=== PATIENT | male | born 1960 | race Caucasian/White ===

== ENCOUNTER 2018-02-26 07:40 | Outpatient (CLI) | payer BC ==
[2018-02-26] VITALS (17 sets, daily range): BP systolic 137–169; BP diastolic 84–113
== END 2018-02-26 23:59 | disposition home or self-care (01) ==
LOC: CARD DIAG 07:40
PROVIDERS: ATTEND Internal Medicine Interventional Cardiology
DX: R55 Syncope and collapse (principal)
CPT/HCPCS: 93660

== ENCOUNTER 2018-04-02 10:38 | Inpatient (IN) | payer BC ==
[~2018-04-02] VITALS: Ht 172.7 cm; Wt 86.0 kg
[2018-04-02] MEDS ORDERED: levetiracetam inj 1,000 MG in normal saline 100ml IV soln 90 ML IV ONE (11:20)
[2018-04-02] MEDS ORDERED: normal saline 1000ML IV soln IVB ONE (11:20)
[2018-04-02] MEDS ORDERED: ondansetron/PF 4mg/2ml inj IV ONE (11:20)
[2018-04-02] MEDS ORDERED: LORazepam 2 mg/ml vial IV ONE (11:25)
[2018-04-02] MEDS ORDERED: CefTRIAXone 2gm/D5W 50ml 50 ML IV ONE (11:40)
[2018-04-02] MEDS ORDERED: acyclovir 1 GM inj IV SCH (11:40)
[2018-04-02 11:42] LABS: BASOPHILS # (AUTO) 0.1 X10'3 (0-0.2); BASOPHILS % (AUTO) 0.4 % (0-1); EOSINOPHILS # (AUTO) 0.3 X10'3 (0-0.9); EOSINOPHILS % (AUTO) 1.8 % (0-6); HEMATOCRIT 53.5 % (42.0-52.0); HEMOGLOBIN 17.7 g/dl (14.0-17.9); LYMPHOCYTES # (AUTO) 6.6 X10'3 (1.1-4.8); LYMPHOCYTES % (AUTO) 44.8 % (21-51); MEAN CORPUSCULAR HEMOGLOBIN 29.9 PG (27.0-31.0); MEAN CORPUSCULAR VOLUME 90.6 FL (78-98); MONOCYTES % (AUTO) 7.1 % (2-12); NEUTROPHILS # (AUTO) 6.7 X10'3 (1.8-7.7); NEUTROPHILS % (AUTO) 45.9 % (42-75); PLATELET COUNT 222 X10'3 (140-440); RED BLOOD COUNT 5.91 X10'6 (4.70-6.10); RED CELL DISTRIBUTION WIDTH 13.3 % (11.5-14.5); WHITE BLOOD COUNT 14.7 X10'3 (4.5-11.0)
[2018-04-02 11:53] LABS: INR 1.1 INR; PARTIAL THROMBOPLASTIN TIME 25 SECONDS (22-32); PROTHROMBIN TIME 11.1 SECONDS (9.0-12.0)
[2018-04-02 12:00] LABS: ALANINE AMINOTRANSFERASE 35 U/L (12-78); ALBUMIN 4.4 G/DL (3.4-5.0); ALBUMIN/GLOBULIN RATIO 1.3 (1.1-1.5); ALKALINE PHOSPHATASE 78 IU/L (46-116); ANION GAP 30 (8-16); ASPARTATE AMINO TRANSFERASE 23 U/L (10-37); BILIRUBIN,TOTAL 0.7 MG/DL (0.1-1.0); BLOOD UREA NITROGEN 23 MG/DL (7-18); BUN/CREATININE RATIO 14.6 (5.4-32.0); CALCIUM 9.7 MG/DL (8.5-10.1); CHLORIDE 103 MMOL/L (99-107); CREATININE 1.58 MG/DL (0.60-1.10); ETHANOL < 0.010 GM/DL (0.0-0.010); GLUCOSE 183 MG/DL (70-104); POTASSIUM 3.3 MMOL/L (3.5-5.1); SODIUM 145 MMOL/L (135-145); TOTAL PROTEIN 7.7 G/DL (6.4-8.2); TROPONIN I < 0.04 NG/ML (0.0-0.05); eGFR 45 ML/MIN
[2018-04-02 12:05] LABS: TOTAL CARBON DIOXIDE 12.4 MMOL/L (24-32)
[2018-04-02] MEDS ORDERED: ACYCLOVIR IV SCH ×2 (12:45→16:00)
[2018-04-02] MEDS ORDERED: NORMAL SALINE IV SCH ×2 (12:45→16:00)
[2018-04-02] MEDS ORDERED: LIDOcaine 1% 30ml preserv. free vial IJ ONE (13:45)
[2018-04-02] MEDS: ACYCLOVIR IV SCH (14:04)
[2018-04-02] MEDS: NORMAL SALINE IV SCH (14:04)
[2018-04-02 14:49] LABS: GLUCOSE,CSF 79 MG/DL (40-75); TOTAL PROTEIN,CSF 59 MG/DL (15-45)
[2018-04-02 15:32] LABS: APPEARANCE,CSF CLEAR; CSF RBC 14 /CU MM (0); CSF SUPERNATANT COLOR COLORLESS; CSF VOLUME 7 ML; CSF WBC CT 2 /CU MM (0-5); TUBE# COUNTED 1
[2018-04-02 15:33] LABS: APPEARANCE,CSF CLEAR; CSF SUPERNATANT COLOR COLORLESS; CSF VOLUME 7 ML; TUBE# COUNTED 4
[2018-04-02 15:34] LABS: CSF RBC 1 /CU MM (0); CSF WBC CT 2 /CU MM (0-5)
[2018-04-02] MEDS ORDERED: magnesium Cl slow-release 64mg tablet PO PRN (17:35)
[2018-04-02] MEDS ORDERED: potassium Cl 40MEQ/NS 500ml 500 ML IV PRN ×2 (17:35)
[2018-04-02] MEDS ORDERED: magnesium 4gm in 100ml NS 100 ML IV PRN (17:35)
[2018-04-02] MEDS ORDERED: ondansetron/PF 4mg/2ml inj IV PRN (17:35)
[2018-04-02] MEDS ORDERED: potassium Cl 20 mEq SR tablet PO PRN ×2 (17:35)
[2018-04-02] MEDS ORDERED: LOSA25TA96 PO (18:34)
[2018-04-02] MEDS ORDERED: ATOR40TA PO (18:34)
[2018-04-02] MEDS ORDERED: FLO0.4C PO (18:34)
[2018-04-02] MEDS: acetaminophen 325mg tablet PO PRN (19:34)
[2018-04-02] MEDS: levetiracetam 250mg tablet PO ONE ×2 (19:35→20:14)
[2018-04-02] MEDS: normal saline 1000ml 1,000 ML IV SCH (19:36)
[2018-04-02 20:02] LABS: CLARITY,URINE CLEAR (Clear); COLOR,URINE YELLOW (Yellow); GLUCOSE, URINE NEGATIVE (Neg); KETONES,URINE NEGATIVE (Neg); LEUKOCYTE ESTERASE ,URINE NEGATIVE (Neg); NITRITES, URINE NEGATIVE (Neg); OCCULT BLOOD,URINE NEGATIVE (Neg); PROTEIN,URINE NEGATIVE (Neg); UROBILINOGEN,URINE 0.2 E.U/dL (0.2-1.0)
[2018-04-02 20:04] LABS: UA COLLECTION TYPE NON-SPECIFIED
[2018-04-02 20:19] LABS: URINE AMPHETAMINE SCREEN NEGATIVE (Neg); URINE BARBITUATE SCREEN NEGATIVE (Neg); URINE BENZODIAZEPINES SCREEN NEGATIVE (Neg); URINE CANNABINOID SCREEN NEGATIVE (Neg); URINE COCAINE SCREEN NEGATIVE (Neg); URINE METHADONE SCREEN NEGATIVE (Neg); URINE OPIATE SCREEN NEGATIVE (Neg); URINE PHENCYCLIDINE SCREEN NEGATIVE (Neg)
[2018-04-03] VITALS (7 sets, daily range): BP systolic 119–147; BP diastolic 76–97
[2018-04-03] MEDS: tamsulosin 0.4mg capsule PO SCH ×3 (00:22→20:00)
[2018-04-03] MEDS: NORMAL SALINE IV SCH ×3 (00:23→17:25)
[2018-04-03] MEDS: ACYCLOVIR IV SCH ×3 (00:23→17:25)
[2018-04-03] MEDS: normal saline 1000ml 1,000 ML IV SCH ×2 (04:14→17:26)
[2018-04-03 05:19] LABS: BASOPHILS % (AUTO) 0.3 % (0-1); EOSINOPHILS # (AUTO) 0.2 X10'3 (0-0.9); HEMATOCRIT 45.2 % (42.0-52.0); HEMOGLOBIN 15.2 g/dl (14.0-17.9); LYMPHOCYTES # (AUTO) 2.6 X10'3 (1.1-4.8); LYMPHOCYTES % (AUTO) 23.7 % (21-51); MEAN CORPUSCULAR HEMOGLOBIN 29.9 PG (27.0-31.0); MEAN CORPUSCULAR HGB CONC 33.6 % (33.0-36.5); MEAN CORPUSCULAR VOLUME 89.1 FL (78-98); MEAN PLATELET VOLUME 9.7 FL (7.4-10.4); MONOCYTES # (AUTO) 0.7 X10'3 (0-0.9); MONOCYTES % (AUTO) 6.2 % (2-12); NEUTROPHILS # (AUTO) 7.4 X10'3 (1.8-7.7); NEUTROPHILS % (AUTO) 67.8 % (42-75); PLATELET COUNT 164 X10'3 (140-440); RED BLOOD COUNT 5.07 X10'6 (4.70-6.10); RED CELL DISTRIBUTION WIDTH 13.5 % (11.5-14.5); WHITE BLOOD COUNT 10.9 X10'3 (4.5-11.0)
[2018-04-03 05:22] LABS: ALBUMIN 3.3 G/DL (3.4-5.0); ANION GAP 10 (8-16); BLOOD UREA NITROGEN 15 MG/DL (7-18); CALCIUM 8.1 MG/DL (8.5-10.1); CHLORIDE 108 MMOL/L (99-107); CREATININE 1.36 MG/DL (0.60-1.10); GLUCOSE 92 MG/DL (70-104); MAGNESIUM 2.3 MG/DL (1.5-2.4); POTASSIUM 3.8 MMOL/L (3.5-5.1); SODIUM 143 MMOL/L (135-145); TOTAL CARBON DIOXIDE 25.1 MMOL/L (24-32); eGFR 54 ML/MIN
[2018-04-03] MEDS: acetaminophen 325mg tablet PO PRN (08:00)
[2018-04-03] MEDS ORDERED: tamsulosin 0.4mg capsule PO SCH ×2 (08:00→20:00)
[2018-04-03] MEDS: K and/or MAG REPLACEMENT MC SCH (08:00)
[2018-04-03] MEDS: levetiracetam 250mg tablet PO SCH ×2 (08:01→20:35)
[2018-04-03] MEDS ORDERED: LORazepam 2 mg/ml vial IV ONE (08:25)
[2018-04-03] MEDS ORDERED: ibuprofen 200mg tablet PO PRN (17:10)
[2018-04-03] MEDS ORDERED: losartan 25mg tablet PO SCH (21:00)
[2018-04-04] MEDS: normal saline 1000ml 1,000 ML IV SCH ×2 (00:27→09:33)
[2018-04-04] MEDS: ACYCLOVIR IV SCH ×2 (00:28→08:02)
[2018-04-04] MEDS: NORMAL SALINE IV SCH ×2 (00:28→08:02)
[2018-04-04 03:00] VITALS: BP 118/79
[2018-04-04 05:25] LABS: BASOPHILS % (AUTO) 0.4 % (0-1); EOSINOPHILS # (AUTO) 0.2 X10'3 (0-0.9); EOSINOPHILS % (AUTO) 1.6 % (0-6); HEMATOCRIT 47.5 % (42.0-52.0); LYMPHOCYTES # (AUTO) 3.2 X10'3 (1.1-4.8); LYMPHOCYTES % (AUTO) 33.7 % (21-51); MEAN CORPUSCULAR HEMOGLOBIN 30.1 PG (27.0-31.0); MEAN CORPUSCULAR HGB CONC 33.6 % (33.0-36.5); MEAN CORPUSCULAR VOLUME 89.6 FL (78-98); MEAN PLATELET VOLUME 9.9 FL (7.4-10.4); MONOCYTES # (AUTO) 0.6 X10'3 (0-0.9); MONOCYTES % (AUTO) 6.7 % (2-12); NEUTROPHILS # (AUTO) 5.5 X10'3 (1.8-7.7); NEUTROPHILS % (AUTO) 57.6 % (42-75); PLATELET COUNT 166 X10'3 (140-440); RED BLOOD COUNT 5.31 X10'6 (4.70-6.10); RED CELL DISTRIBUTION WIDTH 13.6 % (11.5-14.5); WHITE BLOOD COUNT 9.5 X10'3 (4.5-11.0)
[2018-04-04 05:33] LABS: ALBUMIN 3.5 G/DL (3.4-5.0); ANION GAP 10 (8-16); BLOOD UREA NITROGEN 14 MG/DL (7-18); BUN/CREATININE RATIO 10.7 (5.4-32.0); CALCIUM 8.8 MG/DL (8.5-10.1); CHLORIDE 108 MMOL/L (99-107); CREATININE 1.31 MG/DL (0.60-1.10); GLUCOSE 96 MG/DL (70-104); MAGNESIUM 2.2 MG/DL (1.5-2.4); POTASSIUM 4.6 MMOL/L (3.5-5.1); SODIUM 144 MMOL/L (135-145); TOTAL CARBON DIOXIDE 26.5 MMOL/L (24-32); eGFR 56 ML/MIN
[2018-04-04 07:00] VITALS: BP 147/105
[2018-04-04 08:00] VITALS: BP_SYST 145; BP_SYST 147; BP_SYST 158; BP_DIAS 100; BP_DIAS 93; BP_DIAS 97
[2018-04-04] MEDS ORDERED: atorvastatin 20mg tablet PO SCH (08:00)
[2018-04-04] MEDS: K and/or MAG REPLACEMENT MC SCH (08:00)
[2018-04-04] MEDS: tamsulosin 0.4mg capsule PO SCH (08:02)
[2018-04-04] MEDS: levetiracetam 250mg tablet PO SCH (08:03)
[2018-04-04] MEDS ORDERED: ASPI81TA30 PO (09:09)
[2018-04-04 11:00] VITALS: BP 145/100
[2018-04-04] MEDS ORDERED: LEVE250T PO (11:35)
[2018-04-04] MEDS ORDERED: gadopentetate dimeglumine 7.5 MMOL/15 ML syringe ONE (13:15)
== END 2018-04-04 12:45 | disposition home or self-care (01) | DRG 101 ==
LOC: ER 10:39 → ED HOLD 17:33 → EDBEDREQ 20:54 → CMPBEDREQ 22:31 → PCU 3S 22:44
PROVIDERS: ADMIT Internal Medicine; ATTEND Family Medicine
PROC: 4A10X4Z Monitoring of Central Nervous Electrical Activity, External Approach (ICD-10-PCS; principal; 2018-04-03)
DX: R56.9 Unspecified convulsions (principal); E87.2 Acidosis; N17.9 Acute kidney failure, unspecified; G93.9 Disorder of brain, unspecified; E78.5 Hyperlipidemia, unspecified; W19.XXXA Unspecified fall, initial encounter; Y93.89 Activity, other specified; Y92.89 Other specified places as the place of occurrence of the external cause; Y99.8 Other external cause status; I12.9 Hypertensive chronic kidney disease with stage 1 through stage 4 chronic kidney disease, or unspecified chronic kidney disease; N18.9 Chronic kidney disease, unspecified; S00.31XA Abrasion of nose, initial encounter
CPT/HCPCS: 36415; 62270; 70450; 70553; 71045; 80048; 80053; 80305; 80320; 81003; 82945; 82948; 83605; 83735; 84157; 84484; 85025; 85610; 85730; 87015; 87040; 87070; 87210; 89051; 93005; 95816; 96361; 96365; 96367; 96375; 99285; A9579; G0378; J0133; J0696; J1953; J2060; J2405; J3490; J7030